=== PATIENT | male | born 1955 | race Caucasian/White ===

== ENCOUNTER → 2017-12-30 | Outpatient (CLI) | payer BC, OTHER ==
[~2017-12-30] MED LIST: 0.9 % SODIUM CHLORIDE 10 ML VIAL; PERFLUTREN PROTEIN-A MICROSPHR 0.22 MG/ML 3 ML VIAL. IV
== END | disposition home or self-care (01) ==
LOC: PCVCIMAG 08:48
DX: I48.1 Persistent atrial fibrillation (principal); G47.33 Obstructive sleep apnea (adult) (pediatric); K62.5 Hemorrhage of anus and rectum; E78.5 Hyperlipidemia, unspecified; R94.31 Abnormal electrocardiogram [ECG] [EKG]
CPT/HCPCS: 80061; 93005; 93306; Q9956

== ENCOUNTER → 2019-06-15 | Outpatient (CLI) | payer BC ==
--- NOTE | 2019-06-15 11:54 | PCVCIMAG ---
APPROVED REPORT Study performed: 06/15/2019 09:40:06 EXAM: Comprehensive 2D, Doppler, and color-flow Echocardiogram Patient Location: Echo lab Room #: 2Status: routine BSA: 2.30 HR: 82 bpmBP: 116/84 mmHg Rhythm: Atrial Fibrillation Other Information Study Quality: Good Risk Factors: Cardiac Risk Factors: Hyperlipidemia Indications Atrial Fibrillation GERSON 2D Dimensions IVSd: 7.88 (7-11mm)LVOT Diam: 22.09 (18-24mm) LVDd: 44.70 mm PWd: 7.60 (7-11mm)Ascending Ao: 35.75 (22-36mm) LVDs: 27.49 (25-40mm) Left Atrium: 51.18 (27-40mm) Aortic Root: 31.01 mm LV Single Plane 4CH: 55.04 % LV Single Plane 2CH: 57.12 % Biplane EF: 56.0 % Volumes Left Atrial Volume (Systole) Single Plane 4CH: 113.83 mLSingle Plane 2CH: 85.49 mL Biplane LA Volume: 101.00 mLLA ESV Index: 44.00 mL/m2 Aortic Valve AoV Peak Carlos.: 1.02 m/s AO Peak Gr.: 4.28 mmHgLVOT Max P.66 mmHg LVOT Max V: 0.94 m/s PETER Vmax: 3.55 cm2 Mitral Valve MV E Max Carlos.: 0.73 m/s MV PHT: 52.73 ms MVA (PHT): 4.17 cm2 IVRT: 67.47 ms TDI E/Lateral E': 5.62E/Medial E': 6.64 Medial E' Carlos.: 0.11 m/s Lateral E' Carlos.: 0.13 m/s Pulmonary Valve PV Peak Carlos.: 0.96 m/sPV Peak Gr.: 3.72 mmHg Tricuspid Valve TR Peak Carlos.: 2.28 m/s TR Peak Gr.: 20.72 mmHg TV Vmax: 0.92 m/sPA Pressure: 31.00 mmHg Left Ventricle The left ventricle is normal size. There is normal LV segmental wall motion. There is normal left ventricular wall thickness. Left ventricular systolic function is normal. The left ventricular ejection fraction is within the normal range. LVEF is 55-60%. This study is not technically sufficient to allow evaluation of the LV diastolic function due to atrial fibrillation. Right Ventricle The right ventricle is normal size. The right ventricular systolic function is normal. Atria Left atrium is moderately dilated. The right atrium size is normal. Aortic Valve Aortic valve is trileaflet, mildly sclerotic. No aortic regurgitation is present. There is no aortic valvular stenosis. Mitral Valve The mitral valve is normal in structure. There is no mitral valve regurgitation noted. No evidence of mitral valve stenosis. Tricuspid Valve The tricuspid valve is normal in structure. Trace to mild tricuspid regurgitation with a PA pressure of 30 mmHg. Pulmonic Valve The pulmonary valve is normal in structure. There is no pulmonic valvular regurgitation. Great Vessels The aortic root is normal in size. The ascending aorta is normal in size. Aortic arch is normal in caliber. IVC is mildly dilated and collapses >50% with inspiration. Pericardium There is no pericardial effusion. There is no pleural effusion. <Conclusion> Left ventricular systolic function is normal. There is normal LV segmental wall motion. LVEF is 55-60%. Left atrium is moderately dilated. Aortic valve is trileaflet, mildly sclerotic. No aortic regurgitation or stenosis The mitral valve is normal in structure. No mitral valve regurgitation. Trace to mild tricuspid regurgitation with a pulmonary artery pressure of 30 mmHg. There is no pericardial effusion.
== END | disposition home or self-care (01) ==
LOC: PCVCIMAG 09:25
PROVIDERS: ATTEND Internal Medicine
DX: I07.1 Rheumatic tricuspid insufficiency (principal); I48.1 Persistent atrial fibrillation; G47.33 Obstructive sleep apnea (adult) (pediatric); E78.5 Hyperlipidemia, unspecified
CPT/HCPCS: 93306